=== PATIENT | male | born 1950 | race Caucasian/White ===

== ENCOUNTER 2017-03-16 06:28 | Day surgery (SDC) | payer BC ==
[~2017-03-16] VITALS: Ht 182.9 cm; Wt 93.4 kg
[~2017-03-16 06:28] MED LIST: ALL DAY ALLERGY10 M3 PO; ALLOPURINOL100 MG PO; ATENOLOL100 MG PO; COLCHICINE0.6 M1 PO; GLUCOPHAGE500 MG PO; LEVOTHYROXINE125 MCG PO; LIPITOR40 MG PO; NORTRIPTYLINE H25 MG PO; OMEPRAZOLE20 MG PO
[2017-03-16] MEDS ORDERED: MULTIVITAMINS1 EAC7 PO (06:46)
[2017-03-16] MEDS ORDERED: ASPIRIN81 MG PO (06:47)
[2017-03-16] MEDS ORDERED: TURMERIC 450-51 EACH PO (06:48)
--- NOTE | 2017-03-16 08:09 | NUR ---
03/16/17 0809 Lorri Gudaarrama 0806-PATIENT ARRIVED TO PACU ON 3L NC O2 SAT 100% LAYING ON LEFT SIDE. AWAKE DENIES PAIN FALLS ASLEEP. ABDOMEN ROUND DISTENDED.
--- NOTE | 2017-03-16 08:12 | NUR ---
I STOOD IN DOORWAY TO PT'S RM, ASKED IF I COULD COME IN. HE APPARENTLY SAW MY BADGE, AND STATED, "I DON'T NEED YOU IN HERE, PLEASE LEAVE". I EXTENDED A BLESSING AND FOLLOWED HIS WISHES
--- NOTE | 2017-03-16 16:04 | OR ---
[facility] [address], [place] [address] Signed DATE OF PROCEDURE: 03/16/17 PREOPERATIVE DIAGNOSIS: Screening. POSTOPERATIVE DIAGNOSES Minimal to moderate sigmoid diverticulosis. Internal and external hemorrhoids. Minimal posterior midline chronic anal fissure. PROCEDURE: Colonoscopy without biopsy. ESTIMATED BLOOD LOSS: None. INDICATIONS Iglesia is a 67-year-old gentleman asked to see me for routine follow-up screening colonoscopy. He spoke of a negative colonoscopy more than 10 years ago. In the meantime, he has no lower GI complaints. There is no family history of colon cancer or polyps. In the office, I gave Iglesia a pamphlet on colonoscopy and we reviewed the nature of the test along with the risk including but not limited to gas, bloating, crampy abdominal pain, bleeding, perforation requiring surgery, and missed diagnosis. We also discussed the need for IV conscious sedation. He had expressed understanding and wished to proceed. PROCEDURE NOTE Iglesia was taken into our endoscopy suite and placed in the left lateral decubitus position. He was given divided doses of 7 mg of Versed and 125 mcg of Fentanyl. A digital rectal exam was performed and he does have a small 3 or 4 mm chronic posterior midline anal fissure. It has a very pale discoloration showing its chronicity. The prostate gland was a little indurated consistent with his age. He does have some external hemorrhoid tissue. The adult colonoscope was then introduced and advanced all around into the cecum under direct visualization of the camera. We did use some extra sedation in order to advance the scope. His prep was good. The scope was then s lowly withdrawn. Pictures were taken throughout for photo documentation. He also has some diverticula in the left and sigmoid colon. They were moderate in size and minimal to moderate in number and scattered about. The rectum itself was unremarkable. Upon retroflexion of the scope, he does have some minimal to moderate internal hemorrhoid columns as well. After this, the gas was suctioned out. The colonoscope removed. Iglesia tolerated the procedure quite well. RECOMMENDATIONS Iglesia can follow up in 10 years for repeat colonoscopy. Electronically Signed By: SARAH CROWE MD 03/16/17 1604 PATIENT NAME: IGLESIA ALVAREZ OPERATIVE REPORT DATE OF : 54 PHYSICIAN: SARAH CROWE MD REPORT #: [id number] REPORT IS CONFIDENTIAL AND NOT TO BE RELEASED WITHOUT AUTHORIZATION [address] [address] Signed MD ALFA Ruby/Modl /[id number] cc: Zheng Sands MD Electronically Signed By: SARAH CROWE MD 03/16/17 1604 PATIENT NAME: IGLESIA ALVAREZ OPERATIVE REPORT DATE OF : 54 PHYSICIAN: SARAH CROWE MD REPORT #: [id number] REPORT IS CONFIDENTIAL AND NOT TO BE RELEASED WITHOUT AUTHORIZATION
== END 2017-03-16 08:46 | disposition home or self-care (01) ==
LOC: DS 06:28 → OPS 06:28 → DS 06:45 → OPS 06:45
PROVIDERS: Colon & Rectal Surgery
PROC: 0DJD8ZZ Inspection of Lower Intestinal Tract, Via Natural or Artificial Opening Endoscopic (ICD-10-PCS; principal; 2017-03-16 06:45)
DX: Z12.11 Encounter for screening for malignant neoplasm of colon (principal); K57.30 Diverticulosis of large intestine without perforation or abscess without bleeding; K64.8 Other hemorrhoids; K64.4 Residual hemorrhoidal skin tags; K60.1 Chronic anal fissure; I10 Essential (primary) hypertension; E78.5 Hyperlipidemia, unspecified; K21.9 Gastro-esophageal reflux disease without esophagitis; E03.9 Hypothyroidism, unspecified; M10.9 Gout, unspecified; F41.9 Anxiety disorder, unspecified; Z88.1 Allergy status to other antibiotic agents; Z79.899 Other long term (current) drug therapy; Z98.890 Other specified postprocedural states; Z90.89 Acquired absence of other organs; Z98.1 Arthrodesis status; Z96.653 Presence of artificial knee joint, bilateral; Z87.891 Personal history of nicotine dependence
CPT/HCPCS: 99152; 99153; J0694; J2250; J3010; J7120

== ENCOUNTER 2017-12-28 09:55 | Emergency (ER) | payer BC ==
[~2017-12-28] VITALS: Ht 182.9 cm; Wt 93.4 kg
[~2017-12-28 09:55] MED LIST changes: +ASPIRIN81 MG PO; +MULTIVITAMINS1 EAC7 PO; +TURMERIC 450-51 EACH PO
== END 2017-12-28 11:50 | disposition home or self-care (01) ==
LOC: ED 09:55
DX: S16.1XXA Strain of muscle, fascia and tendon at neck level, initial encounter (principal); W22.8XXA Striking against or struck by other objects, initial encounter; Z87.891 Personal history of nicotine dependence; Z88.1 Allergy status to other antibiotic agents; Z79.899 Other long term (current) drug therapy; Z79.84 Long term (current) use of oral hypoglycemic drugs; Z79.82 Long term (current) use of aspirin
CPT/HCPCS: 72125; 99283